=== PATIENT | male | born 1945 | race Caucasian/White ===

== ENCOUNTER 2018-02-05 14:45 | Inpatient (IN) | payer MEDICARE, BC ==
[~2018-02-05] VITALS: Ht 182.9 cm; Wt 75.0 kg
[~2018-02-05 14:45] MED LIST: AMIO200T57 PO; ATOR20TA PO; CARV3.12 PO; DULO-31 PO; FURO-150 PO; PANT40TA4 PO; SACU1TAB PO; SITA1TAB6 PO; WARF3TAB PO
[2018-02-05 16:56] LABS: BASOPHILS % (AUTO) 0.2 % (0-1); EOSINOPHILS # (AUTO) 0.3 X10'3 (0-0.9); EOSINOPHILS % (AUTO) 2.4 % (0-6); HEMOGLOBIN 8.7 g/dl (14.0-17.9); LYMPHOCYTES # (AUTO) 0.3 X10'3 (1.1-4.8); LYMPHOCYTES % (AUTO) 2.5 % (21-51); MEAN CORPUSCULAR HEMOGLOBIN 26.5 PG (27.0-31.0); MEAN CORPUSCULAR HGB CONC 32.1 % (33.0-36.5); MEAN CORPUSCULAR VOLUME 82.5 FL (78-98); MEAN PLATELET VOLUME 7.8 FL (7.4-10.4); MONOCYTES # (AUTO) 0.5 X10'3 (0-0.9); MONOCYTES % (AUTO) 4.1 % (2-12); NEUTROPHILS # (AUTO) 11.3 X10'3 (1.8-7.7); NEUTROPHILS % (AUTO) 90.8 % (42-75); PLATELET COUNT 353 X10'3 (140-440); RED BLOOD COUNT 3.27 X10'6 (4.70-6.10); RED CELL DISTRIBUTION WIDTH 18.6 % (11.5-14.5); WHITE BLOOD COUNT 12.5 X10'3 (4.5-11.0)
[2018-02-05 17:09] LABS: INR 3.8 INR; PARTIAL THROMBOPLASTIN TIME 47 SECONDS (22-32); PROTHROMBIN TIME 37.7 SECONDS (9.0-12.0)
[2018-02-05 17:11] LABS: ALANINE AMINOTRANSFERASE 24 U/L (12-78); ALBUMIN 2.6 G/DL (3.4-5.0); ALBUMIN/GLOBULIN RATIO 0.7 (1.1-1.5); ALKALINE PHOSPHATASE 132 IU/L (46-116); ANION GAP 10 (8-16); ASPARTATE AMINO TRANSFERASE 24 U/L (10-37); BILIRUBIN,TOTAL 0.8 MG/DL (0.1-1.0); BLOOD UREA NITROGEN 24 MG/DL (7-18); BUN/CREATININE RATIO 13.3 (5.4-32.0); CALCIUM 8.6 MG/DL (8.5-10.1); CHLORIDE 102 MMOL/L (99-107); CREATININE 1.81 MG/DL (0.60-1.10); GLUCOSE 130 MG/DL (70-104); POTASSIUM 3.9 MMOL/L (3.5-5.1); SODIUM 142 MMOL/L (135-145); TOTAL CARBON DIOXIDE 30.2 MMOL/L (24-32); TOTAL PROTEIN 6.6 G/DL (6.4-8.2); eGFR 37 ML/MIN
[2018-02-05] MEDS ORDERED: LIDOcaine 2% 10ml TOPICAL JELLY (Urojet) MM ONE (17:35)
[2018-02-05 18:02] LABS: CLARITY,URINE CLEAR (Clear); COLOR,URINE YELLOW (Yellow); GLUCOSE, URINE NEGATIVE (Neg); KETONES,URINE NEGATIVE (Neg); LEUKOCYTE ESTERASE ,URINE NEGATIVE (Neg); NITRITES, URINE NEGATIVE (Neg); OCCULT BLOOD,URINE NEGATIVE (Neg); PROTEIN,URINE NEGATIVE (Neg); UA COLLECTION TYPE FOLEY CATH; UROBILINOGEN,URINE 0.2 E.U/dL (0.2-1.0)
[2018-02-05] MEDS ORDERED: mag hydrox/Alum hydrox/simeth 30ml oral suspension PO PRN (20:20)
[2018-02-05] MEDS ORDERED: potassium Cl 40MEQ/NS 500ml 500 ML IV PRN ×2 (20:20)
[2018-02-05] MEDS ORDERED: magnesium hydroxide 30ml (MOM) UD suspension PO PRN (20:20)
[2018-02-05] MEDS ORDERED: magnesium 2GM in 50ml NS 50 ML IV PRN (20:20)
[2018-02-05] MEDS ORDERED: potassium Cl 20 mEq SR tablet PO PRN (20:20)
[2018-02-05] MEDS ORDERED: acetaminophen 325mg tablet PO PRN (20:20)
[2018-02-05] MEDS ORDERED: magnesium 4gm in 100ml NS 100 ML IV PRN (20:20)
[2018-02-05] MEDS ORDERED: morphine 4 MG/ML inj SYRINge IV PRN ×2 (20:20)
[2018-02-05] MEDS: normal saline 1000ml 1,000 ML IV SCH (20:39)
[2018-02-05] MEDS ORDERED: metFORMIN 500mg tablet PO SCH (21:00)
[2018-02-05] MEDS ORDERED: temazepam 15mg capsule PO PRN (21:00)
[2018-02-05] MEDS ORDERED: phytonadione inj. 5 MG in normal saline 100ml IV soln 99.5 ML IV ONE (21:15)
[2018-02-05] MEDS: CefTRIAXone 2gm/NS 100ml IVPB 100 ML IV SCH (21:38)
[2018-02-05 22:00] VITALS: BP 130/54
[2018-02-05] MEDS ORDERED: phytonadione 10 MG/1 ML amp IV ONE (22:55)
[2018-02-05] MEDS ORDERED: normal saline 100ml IV soln 100 ML IV ONE (22:55)
[2018-02-05] MEDS ORDERED: phytonadione 10 MG/1 ML amp ONE (23:12)
[2018-02-06 05:00] VITALS: BP 110/59
[2018-02-06 05:24] LABS: BASOPHILS % (AUTO) 0.1 % (0-1); EOSINOPHILS # (AUTO) 0.3 X10'3 (0-0.9); EOSINOPHILS % (AUTO) 2.8 % (0-6); HEMOGLOBIN 7.9 g/dl (14.0-17.9); LYMPHOCYTES # (AUTO) 0.6 X10'3 (1.1-4.8); LYMPHOCYTES % (AUTO) 6.4 % (21-51); MEAN CORPUSCULAR HEMOGLOBIN 26.8 PG (27.0-31.0); MEAN CORPUSCULAR HGB CONC 33.1 % (33.0-36.5); MEAN CORPUSCULAR VOLUME 80.9 FL (78-98); MEAN PLATELET VOLUME 8.7 FL (7.4-10.4); MONOCYTES # (AUTO) 0.6 X10'3 (0-0.9); MONOCYTES % (AUTO) 6.8 % (2-12); NEUTROPHILS # (AUTO) 7.8 X10'3 (1.8-7.7); NEUTROPHILS % (AUTO) 83.9 % (42-75); PLATELET COUNT 311 X10'3 (140-440); RED BLOOD COUNT 2.96 X10'6 (4.70-6.10); RED CELL DISTRIBUTION WIDTH 18.6 % (11.5-14.5); WHITE BLOOD COUNT 9.3 X10'3 (4.5-11.0)
[2018-02-06 05:34] LABS: INR 2.4 INR; PROTHROMBIN TIME 24.1 SECONDS (9.0-12.0)
[2018-02-06 05:43] LABS: ALANINE AMINOTRANSFERASE 20 U/L (12-78); ALBUMIN 2.3 G/DL (3.4-5.0); ALBUMIN/GLOBULIN RATIO 0.6 (1.1-1.5); ALKALINE PHOSPHATASE 116 IU/L (46-116); ANION GAP 10 (8-16); ASPARTATE AMINO TRANSFERASE 20 U/L (10-37); BILIRUBIN,TOTAL 0.6 MG/DL (0.1-1.0); BLOOD UREA NITROGEN 24 MG/DL (7-18); BUN/CREATININE RATIO 13.2 (5.4-32.0); CALCIUM 8.3 MG/DL (8.5-10.1); CHLORIDE 104 MMOL/L (99-107); CHOL/HDL RATIO 3.3 (0.00-4.99); CHOLESTEROL 90 MG/DL (0-200); CREATININE 1.82 MG/DL (0.60-1.10); GLUCOSE 96 MG/DL (70-104); HDL CHOLESTEROL 27 MG/DL (35-60); LDL CHOLESTEROL 49 MG/DL (50-100); MAGNESIUM 1.3 MG/DL (1.5-2.4); POTASSIUM 3.4 MMOL/L (3.5-5.1); SODIUM 144 MMOL/L (135-145); TOTAL CARBON DIOXIDE 29.7 MMOL/L (24-32); TOTAL PROTEIN 6.1 G/DL (6.4-8.2); TRIGLYCERIDES 57 MG/DL (20-135); eGFR 37 ML/MIN
[2018-02-06] MEDS ORDERED: furosemide 20MG tablet PO SCH (08:00)
[2018-02-06] MEDS: magnesium Cl slow-release 64mg tablet PO PRN ×2 (08:26→12:54)
[2018-02-06] MEDS: sacubitril/valsartan 24mg-26mg tablet PO SCH ×2 (08:26→20:10)
[2018-02-06] MEDS: carVEDilol 3.125mg tablet PO SCH (08:26)
[2018-02-06] MEDS: duloxetine 30mg CAPSULE.DR PO SCH (08:26)
[2018-02-06] MEDS: potassium Cl 20 mEq SR tablet PO PRN ×3 (08:26→18:36)
[2018-02-06] MEDS: amiodarone 200mg tablet PO SCH (08:26)
[2018-02-06] MEDS: ondansetron/PF 4mg/2ml inj IV PRN ×2 (08:26→18:36)
[2018-02-06] MEDS: pantoprazole 40mg Tablet.DR PO SCH (08:26)
[2018-02-06 08:31] VITALS: BP 131/67
[2018-02-06] MEDS: K and/or MAG REPLACEMENT MC SCH (08:44)
[2018-02-06] MEDS ORDERED: acetaminophen 325mg tablet PO ONE (09:25)
[2018-02-06] MEDS ORDERED: dextrose ORAL solution 15 GM/59 ML bottle PO PRN ×2 (09:25)
[2018-02-06] MEDS ORDERED: glucagon, human recombinant 1mg kit SUBCUT PRN (09:25)
[2018-02-06] MEDS ORDERED: dextrose 50%-water 50ml dispensing syringe IV PRN ×2 (09:25)
[2018-02-06] MEDS ORDERED: MESSAGE TO PHARMACY PO ONE (09:25)
[2018-02-06 10:20] VITALS: BP 117/58
[2018-02-06] MEDS: HYDROcodone/acetaminophen 5mg/325mg tablet PO PRN (12:28)
[2018-02-06] MEDS: normal saline 1000ml 1,000 ML IV SCH (12:29)
[2018-02-06 12:45] LABS: BASOPHILS % (AUTO) 0.2 % (0-1); EOSINOPHILS # (AUTO) 0.2 X10'3 (0-0.9); EOSINOPHILS % (AUTO) 2.3 % (0-6); HEMATOCRIT 25.1 % (42.0-52.0); HEMOGLOBIN 8.1 g/dl (14.0-17.9); LYMPHOCYTES # (AUTO) 0.4 X10'3 (1.1-4.8); MEAN CORPUSCULAR HEMOGLOBIN 26.5 PG (27.0-31.0); MEAN CORPUSCULAR HGB CONC 32.5 % (33.0-36.5); MEAN CORPUSCULAR VOLUME 81.5 FL (78-98); MEAN PLATELET VOLUME 8.4 FL (7.4-10.4); MONOCYTES # (AUTO) 0.6 X10'3 (0-0.9); MONOCYTES % (AUTO) 5.4 % (2-12); NEUTROPHILS # (AUTO) 9.5 X10'3 (1.8-7.7); NEUTROPHILS % (AUTO) 88.1 % (42-75); PLATELET COUNT 353 X10'3 (140-440); RED BLOOD COUNT 3.07 X10'6 (4.70-6.10); RED CELL DISTRIBUTION WIDTH 18.7 % (11.5-14.5); WHITE BLOOD COUNT 10.8 X10'3 (4.5-11.0)
[2018-02-06 18:00] VITALS: BP 102/43
[2018-02-06 18:03] LABS: BASOPHILS # (AUTO) 0.1 X10'3 (0-0.2); BASOPHILS % (AUTO) 0.6 % (0-1); EOSINOPHILS # (AUTO) 0.3 X10'3 (0-0.9); EOSINOPHILS % (AUTO) 2.8 % (0-6); HEMATOCRIT 25.7 % (42.0-52.0); HEMOGLOBIN 8.2 g/dl (14.0-17.9); LYMPHOCYTES # (AUTO) 0.5 X10'3 (1.1-4.8); LYMPHOCYTES % (AUTO) 5.1 % (21-51); MEAN CORPUSCULAR HEMOGLOBIN 26.3 PG (27.0-31.0); MEAN CORPUSCULAR HGB CONC 32.1 % (33.0-36.5); MEAN PLATELET VOLUME 7.9 FL (7.4-10.4); MONOCYTES # (AUTO) 0.8 X10'3 (0-0.9); MONOCYTES % (AUTO) 7.6 % (2-12); NEUTROPHILS # (AUTO) 8.8 X10'3 (1.8-7.7); NEUTROPHILS % (AUTO) 83.9 % (42-75); PLATELET COUNT 339 X10'3 (140-440); RED BLOOD COUNT 3.13 X10'6 (4.70-6.10); RED CELL DISTRIBUTION WIDTH 18.8 % (11.5-14.5); WHITE BLOOD COUNT 10.5 X10'3 (4.5-11.0)
[2018-02-06] MEDS ORDERED: phytonadione 10 MG/1 ML amp PO ONE (18:10)
[2018-02-06] MEDS: NUT.TX.GLUC.INTOLER,LAC-FR,REG (BOOST GLUCOSE CONTROL) 237 ML PO SCH (18:26)
[2018-02-06] MEDS: HYDROcodone/acetaminophen 10/325mg tab PO PRN (18:36)
[2018-02-06] MEDS: furosemide 20 MG/2 ML vial IV SCH (20:10)
[2018-02-06] MEDS: lactobacillus rhamnosus 10,000 MMU CELLS/CAPSULE PO SCH (20:10)
[2018-02-06] MEDS: CefTRIAXone 2gm/NS 100ml IVPB 100 ML IV SCH (20:10)
[2018-02-06 20:19] VITALS: BP 112/59
[2018-02-06] MEDS: insulin glargine (Lantus) pen - multi-dose SQ SCH (21:00)
[2018-02-06 21:58] VITALS: BP 106/44
[2018-02-07] VITALS (18 sets, daily range): BP systolic 85–131; BP diastolic 33–69
[2018-02-07] MEDS: HYDROcodone/acetaminophen 10/325mg tab PO PRN ×3 (03:29→22:21)
[2018-02-07 05:50] LABS: BASOPHILS % (AUTO) 0.2 % (0-1); EOSINOPHILS # (AUTO) 0.4 X10'3 (0-0.9); HEMATOCRIT 24.7 % (42.0-52.0); LYMPHOCYTES # (AUTO) 0.5 X10'3 (1.1-4.8); LYMPHOCYTES % (AUTO) 4.1 % (21-51); MEAN CORPUSCULAR HEMOGLOBIN 26.7 PG (27.0-31.0); MEAN CORPUSCULAR HGB CONC 32.3 % (33.0-36.5); MEAN CORPUSCULAR VOLUME 82.5 FL (78-98); MEAN PLATELET VOLUME 8.2 FL (7.4-10.4); MONOCYTES % (AUTO) 7.9 % (2-12); NEUTROPHILS # (AUTO) 10.3 X10'3 (1.8-7.7); NEUTROPHILS % (AUTO) 84.8 % (42-75); PLATELET COUNT 363 X10'3 (140-440); RED BLOOD COUNT 2.99 X10'6 (4.70-6.10); RED CELL DISTRIBUTION WIDTH 18.2 % (11.5-14.5); WHITE BLOOD COUNT 12.1 X10'3 (4.5-11.0)
[2018-02-07 06:04] LABS: INR 1.2 INR; PROTHROMBIN TIME 12.8 SECONDS (9.0-12.0)
[2018-02-07 06:22] LABS: ALANINE AMINOTRANSFERASE 23 U/L (12-78); ALBUMIN 2.2 G/DL (3.4-5.0); ALBUMIN/GLOBULIN RATIO 0.6 (1.1-1.5); ALKALINE PHOSPHATASE 113 IU/L (46-116); ANION GAP 10 (8-16); ASPARTATE AMINO TRANSFERASE 20 U/L (10-37); BILIRUBIN,TOTAL 0.6 MG/DL (0.1-1.0); BLOOD UREA NITROGEN 34 MG/DL (7-18); BUN/CREATININE RATIO 15.9 (5.4-32.0); CALCIUM 8.2 MG/DL (8.5-10.1); CHLORIDE 104 MMOL/L (99-107); CREATININE 2.14 MG/DL (0.60-1.10); GLUCOSE 145 MG/DL (70-104); MAGNESIUM 1.5 MG/DL (1.5-2.4); POTASSIUM 4.7 MMOL/L (3.5-5.1); SODIUM 141 MMOL/L (135-145); TOTAL CARBON DIOXIDE 27.2 MMOL/L (24-32); TOTAL PROTEIN 5.8 G/DL (6.4-8.2); eGFR 30 ML/MIN
[2018-02-07] MEDS: K and/or MAG REPLACEMENT MC SCH (08:00)
[2018-02-07] MEDS: NUT.TX.GLUC.INTOLER,LAC-FR,REG (BOOST GLUCOSE CONTROL) 237 ML PO SCH ×3 (08:00→18:00)
[2018-02-07] MEDS: furosemide 20 MG/2 ML vial IV SCH (08:18)
[2018-02-07] MEDS: pantoprazole 40mg Tablet.DR PO SCH (08:18)
[2018-02-07] MEDS: carVEDilol 3.125mg tablet PO SCH (08:18)
[2018-02-07] MEDS: duloxetine 30mg CAPSULE.DR PO SCH (08:18)
[2018-02-07] MEDS: lactobacillus rhamnosus 10,000 MMU CELLS/CAPSULE PO SCH ×2 (08:18→22:21)
[2018-02-07] MEDS: amiodarone 200mg tablet PO SCH (08:18)
[2018-02-07] MEDS: sacubitril/valsartan 24mg-26mg tablet PO SCH ×2 (08:19→22:21)
[2018-02-07] MEDS: ringers solution, lacted 1,000 ML IV SCH ×2 (09:10→22:31)
[2018-02-07] MEDS ORDERED: ceFAZolin 1000mg inj ONE (11:20)
[2018-02-07] MEDS ORDERED: cefazolin 1gm/NS 100mL 100 ML IV ONE (12:00)
[2018-02-07] MEDS ORDERED: ondansetron/PF 4mg/2ml inj IV PRN (12:15)
[2018-02-07] MEDS ORDERED: meperidine/PF 50mg/ml syringe IV PRN (12:15)
[2018-02-07] MEDS ORDERED: morphine 4 MG/ML inj SYRINge IV PRN ×2 (12:15)
[2018-02-07] MEDS ORDERED: ringers solution, lacted 1,000 ML IV SCH (12:15)
[2018-02-07] MEDS ORDERED: proCHLORperazine 10 MG/2 ml inj IV PRN (12:15)
[2018-02-07] MEDS ORDERED: fentaNYL/PF 50MCG/1 ML 2ML syringe IV PRN ×2 (12:15)
[2018-02-07] MEDS ORDERED: midazolam 2 mg/2 ml injection ONE (12:23)
[2018-02-07] MEDS ORDERED: ePHEDrine 50MG/ML INJ. ONE ×2 (12:49→12:58)
[2018-02-07] MEDS ORDERED: propofol inj 20 ML IV ONE (12:49)
[2018-02-07] MEDS ORDERED: phenylephrine 10mg/ml inj IV ONE (13:16)
[2018-02-07 15:08] LABS: HEMOGLOBIN 7.5 g/dl (14.0-17.9); MEAN PLATELET VOLUME 8.3 FL (7.4-10.4); PLATELET COUNT 279 X10'3 (140-440)
[2018-02-07 15:10] LABS: BASOPHILS % (AUTO) 0.2 % (0-1); EOSINOPHILS # (AUTO) 0.1 X10'3 (0-0.9); EOSINOPHILS % (AUTO) 1.2 % (0-6); LYMPHOCYTES # (AUTO) 0.4 X10'3 (1.1-4.8); LYMPHOCYTES % (AUTO) 3.9 % (21-51); MEAN CORPUSCULAR HEMOGLOBIN 26.5 PG (27.0-31.0); MEAN CORPUSCULAR HGB CONC 32.6 % (33.0-36.5); MEAN CORPUSCULAR VOLUME 81.3 FL (78-98); MONOCYTES # (AUTO) 0.7 X10'3 (0-0.9); MONOCYTES % (AUTO) 6.6 % (2-12); NEUTROPHILS % (AUTO) 88.1 % (42-75); RED BLOOD COUNT 2.82 X10'6 (4.70-6.10); RED CELL DISTRIBUTION WIDTH 18.2 % (11.5-14.5); WHITE BLOOD COUNT 10.3 X10'3 (4.5-11.0)
[2018-02-07 18:16] LABS: BASOPHILS % (AUTO) 0.2 % (0-1); EOSINOPHILS # (AUTO) 0.3 X10'3 (0-0.9); EOSINOPHILS % (AUTO) 2.5 % (0-6); HEMATOCRIT 23.5 % (42.0-52.0); HEMOGLOBIN 7.7 g/dl (14.0-17.9); LYMPHOCYTES # (AUTO) 0.4 X10'3 (1.1-4.8); LYMPHOCYTES % (AUTO) 3.4 % (21-51); MEAN CORPUSCULAR HEMOGLOBIN 26.8 PG (27.0-31.0); MEAN CORPUSCULAR HGB CONC 32.9 % (33.0-36.5); MEAN CORPUSCULAR VOLUME 81.5 FL (78-98); MEAN PLATELET VOLUME 7.9 FL (7.4-10.4); MONOCYTES # (AUTO) 0.9 X10'3 (0-0.9); MONOCYTES % (AUTO) 7.8 % (2-12); NEUTROPHILS # (AUTO) 9.7 X10'3 (1.8-7.7); NEUTROPHILS % (AUTO) 86.1 % (42-75); PLATELET COUNT 305 X10'3 (140-440); RED BLOOD COUNT 2.88 X10'6 (4.70-6.10); RED CELL DISTRIBUTION WIDTH 18.3 % (11.5-14.5); WHITE BLOOD COUNT 11.3 X10'3 (4.5-11.0)
[2018-02-07] MEDS: insulin glargine (Lantus) pen - multi-dose SQ SCH (21:00)
[2018-02-07] MEDS: furosemide 20MG tablet PO SCH (22:20)
[2018-02-07] MEDS: CefTRIAXone 2gm/NS 100ml IVPB 100 ML IV SCH (22:22)
[2018-02-08 01:16] LABS: BASOPHILS # (AUTO) 0.1 X10'3 (0-0.2); EOSINOPHILS # (AUTO) 0.1 X10'3 (0-0.9); EOSINOPHILS % (AUTO) 0.5 % (0-6); HEMATOCRIT 24.4 % (42.0-52.0); HEMOGLOBIN 7.9 g/dl (14.0-17.9); LYMPHOCYTES # (AUTO) 0.4 X10'3 (1.1-4.8); LYMPHOCYTES % (AUTO) 3.3 % (21-51); MEAN CORPUSCULAR HEMOGLOBIN 26.6 PG (27.0-31.0); MEAN CORPUSCULAR HGB CONC 32.5 % (33.0-36.5); MEAN CORPUSCULAR VOLUME 81.9 FL (78-98); MEAN PLATELET VOLUME 8.9 FL (7.4-10.4); MONOCYTES # (AUTO) 0.8 X10'3 (0-0.9); MONOCYTES % (AUTO) 6.2 % (2-12); NEUTROPHILS # (AUTO) 10.9 X10'3 (1.8-7.7); PLATELET COUNT 343 X10'3 (140-440); RED BLOOD COUNT 2.98 X10'6 (4.70-6.10); RED CELL DISTRIBUTION WIDTH 17.5 % (11.5-14.5); WHITE BLOOD COUNT 12.3 X10'3 (4.5-11.0)
[2018-02-08 03:00] VITALS: BP 121/52
[2018-02-08] MEDS: HYDROcodone/acetaminophen 10/325mg tab PO PRN ×3 (05:02→20:49)
[2018-02-08 05:51] LABS: BASOPHILS % (AUTO) 0.3 % (0-1); EOSINOPHILS # (AUTO) 0.3 X10'3 (0-0.9); EOSINOPHILS % (AUTO) 2.6 % (0-6); HEMATOCRIT 23.7 % (42.0-52.0); HEMOGLOBIN 7.6 g/dl (14.0-17.9); LYMPHOCYTES # (AUTO) 0.4 X10'3 (1.1-4.8); LYMPHOCYTES % (AUTO) 3.7 % (21-51); MEAN CORPUSCULAR HEMOGLOBIN 26.6 PG (27.0-31.0); MEAN CORPUSCULAR HGB CONC 32.2 % (33.0-36.5); MEAN CORPUSCULAR VOLUME 82.7 FL (78-98); MONOCYTES # (AUTO) 0.9 X10'3 (0-0.9); MONOCYTES % (AUTO) 8.3 % (2-12); NEUTROPHILS # (AUTO) 8.9 X10'3 (1.8-7.7); NEUTROPHILS % (AUTO) 85.1 % (42-75); PLATELET COUNT 303 X10'3 (140-440); RED BLOOD COUNT 2.87 X10'6 (4.70-6.10); RED CELL DISTRIBUTION WIDTH 18.5 % (11.5-14.5); WHITE BLOOD COUNT 10.5 X10'3 (4.5-11.0)
[2018-02-08 06:00] VITALS: BP 116/53
[2018-02-08 06:04] LABS: INR 1.1 INR; PROTHROMBIN TIME 11.7 SECONDS (9.0-12.0)
[2018-02-08 06:12] LABS: ALANINE AMINOTRANSFERASE 20 U/L (12-78); ALBUMIN/GLOBULIN RATIO 0.5 (1.1-1.5); ALKALINE PHOSPHATASE 111 IU/L (46-116); ANION GAP 9 (8-16); ASPARTATE AMINO TRANSFERASE 22 U/L (10-37); BILIRUBIN,TOTAL 0.4 MG/DL (0.1-1.0); BLOOD UREA NITROGEN 37 MG/DL (7-18); BUN/CREATININE RATIO 19.5 (5.4-32.0); CALCIUM 8.3 MG/DL (8.5-10.1); CHLORIDE 103 MMOL/L (99-107); GLUCOSE 161 MG/DL (70-104); MAGNESIUM 1.5 MG/DL (1.5-2.4); POTASSIUM 4.3 MMOL/L (3.5-5.1); SODIUM 143 MMOL/L (135-145); TOTAL CARBON DIOXIDE 30.6 MMOL/L (24-32); TOTAL PROTEIN 5.7 G/DL (6.4-8.2); eGFR 35 ML/MIN
[2018-02-08] MEDS: pantoprazole 40mg Tablet.DR PO SCH (07:35)
[2018-02-08] MEDS: NUT.TX.GLUC.INTOLER,LAC-FR,REG (BOOST GLUCOSE CONTROL) 237 ML PO SCH ×3 (08:00→18:51)
[2018-02-08] MEDS: furosemide 20MG tablet PO SCH ×2 (08:00→20:48)
[2018-02-08] MEDS: K and/or MAG REPLACEMENT MC SCH (08:00)
[2018-02-08] MEDS: sacubitril/valsartan 24mg-26mg tablet PO SCH ×2 (08:00→20:00)
[2018-02-08] MEDS: lactobacillus rhamnosus 10,000 MMU CELLS/CAPSULE PO SCH ×2 (08:45→20:49)
[2018-02-08] MEDS: carVEDilol 3.125mg tablet PO SCH (08:46)
[2018-02-08] MEDS: duloxetine 30mg CAPSULE.DR PO SCH (08:46)
[2018-02-08 10:00] VITALS: BP 112/53
[2018-02-08 12:00] LABS: BASOPHILS % (AUTO) 0.2 % (0-1); EOSINOPHILS # (AUTO) 0.2 X10'3 (0-0.9); EOSINOPHILS % (AUTO) 1.9 % (0-6); HEMATOCRIT 24.6 % (42.0-52.0); HEMOGLOBIN 8.1 g/dl (14.0-17.9); LYMPHOCYTES # (AUTO) 0.3 X10'3 (1.1-4.8); MEAN PLATELET VOLUME 8.2 FL (7.4-10.4); MONOCYTES # (AUTO) 0.7 X10'3 (0-0.9); MONOCYTES % (AUTO) 6.1 % (2-12); NEUTROPHILS # (AUTO) 10.2 X10'3 (1.8-7.7); NEUTROPHILS % (AUTO) 88.8 % (42-75); PLATELET COUNT 353 X10'3 (140-440); RED CELL DISTRIBUTION WIDTH 18.4 % (11.5-14.5); WHITE BLOOD COUNT 11.5 X10'3 (4.5-11.0)
[2018-02-08] MEDS: insulin Lispro (HumaLOG) vial - multi-dose SQ SCH ×2 (14:02→18:50)
[2018-02-08] MEDS: amiodarone 200mg tablet PO SCH (17:42)
[2018-02-08 18:00] VITALS: BP 104/46
[2018-02-08 19:46] LABS: BASOPHILS % (AUTO) 0.1 % (0-1); EOSINOPHILS # (AUTO) 0.1 X10'3 (0-0.9); HEMATOCRIT 25.4 % (42.0-52.0); HEMOGLOBIN 8.3 g/dl (14.0-17.9); LYMPHOCYTES # (AUTO) 0.4 X10'3 (1.1-4.8); LYMPHOCYTES % (AUTO) 3.5 % (21-51); MEAN CORPUSCULAR HEMOGLOBIN 26.6 PG (27.0-31.0); MEAN CORPUSCULAR HGB CONC 32.6 % (33.0-36.5); MEAN CORPUSCULAR VOLUME 81.7 FL (78-98); MEAN PLATELET VOLUME 7.9 FL (7.4-10.4); MONOCYTES # (AUTO) 0.7 X10'3 (0-0.9); MONOCYTES % (AUTO) 6.2 % (2-12); NEUTROPHILS # (AUTO) 9.9 X10'3 (1.8-7.7); NEUTROPHILS % (AUTO) 89.2 % (42-75); PLATELET COUNT 342 X10'3 (140-440); RED BLOOD COUNT 3.11 X10'6 (4.70-6.10); RED CELL DISTRIBUTION WIDTH 18.4 % (11.5-14.5); WHITE BLOOD COUNT 11.1 X10'3 (4.5-11.0)
[2018-02-08] MEDS: CefTRIAXone 2gm/NS 100ml IVPB 100 ML IV SCH (20:48)
[2018-02-08] MEDS: insulin glargine (Lantus) pen - multi-dose SQ SCH (20:48)
[2018-02-08] MEDS ORDERED: warfarin 5mg tablet PO ONE (21:00)
[2018-02-08 22:00] VITALS: BP 97/42
[2018-02-09] MEDS: ringers solution, lacted 1,000 ML IV SCH ×2 (01:10→21:10)
[2018-02-09] MEDS: HYDROcodone/acetaminophen 10/325mg tab PO PRN ×2 (05:21→20:03)
[2018-02-09 06:00] VITALS: BP 99/44
[2018-02-09 06:21] LABS: BASOPHILS % (AUTO) 0.2 % (0-1); EOSINOPHILS # (AUTO) 0.4 X10'3 (0-0.9); EOSINOPHILS % (AUTO) 3.5 % (0-6); HEMOGLOBIN 7.2 g/dl (14.0-17.9); LYMPHOCYTES # (AUTO) 0.4 X10'3 (1.1-4.8); LYMPHOCYTES % (AUTO) 4.2 % (21-51); MEAN CORPUSCULAR HEMOGLOBIN 26.6 PG (27.0-31.0); MEAN CORPUSCULAR HGB CONC 32.9 % (33.0-36.5); MEAN CORPUSCULAR VOLUME 80.9 FL (78-98); MEAN PLATELET VOLUME 7.6 FL (7.4-10.4); MONOCYTES # (AUTO) 0.8 X10'3 (0-0.9); MONOCYTES % (AUTO) 7.7 % (2-12); NEUTROPHILS # (AUTO) 8.9 X10'3 (1.8-7.7); NEUTROPHILS % (AUTO) 84.4 % (42-75); PLATELET COUNT 270 X10'3 (140-440); RED BLOOD COUNT 2.72 X10'6 (4.70-6.10); RED CELL DISTRIBUTION WIDTH 18.6 % (11.5-14.5); WHITE BLOOD COUNT 10.5 X10'3 (4.5-11.0)
[2018-02-09 06:26] LABS: INR 1.3 INR; PROTHROMBIN TIME 13.4 SECONDS (9.0-12.0)
[2018-02-09 06:38] LABS: ALANINE AMINOTRANSFERASE 23 U/L (12-78); ALBUMIN 1.9 G/DL (3.4-5.0); ALBUMIN/GLOBULIN RATIO 0.5 (1.1-1.5); ALKALINE PHOSPHATASE 125 IU/L (46-116); ANION GAP 5 (8-16); ASPARTATE AMINO TRANSFERASE 27 U/L (10-37); BILIRUBIN,TOTAL 0.4 MG/DL (0.1-1.0); BLOOD UREA NITROGEN 32 MG/DL (7-18); BUN/CREATININE RATIO 20.1 (5.4-32.0); CALCIUM 8.5 MG/DL (8.5-10.1); CHLORIDE 105 MMOL/L (99-107); CREATININE 1.59 MG/DL (0.60-1.10); GLUCOSE 136 MG/DL (70-104); MAGNESIUM 1.7 MG/DL (1.5-2.4); POTASSIUM 4.9 MMOL/L (3.5-5.1); SODIUM 142 MMOL/L (135-145); TOTAL CARBON DIOXIDE 32.3 MMOL/L (24-32); TOTAL PROTEIN 5.5 G/DL (6.4-8.2); eGFR 43 ML/MIN
[2018-02-09] MEDS: carVEDilol 3.125mg tablet PO SCH (08:00)
[2018-02-09] MEDS: furosemide 20MG tablet PO SCH ×2 (08:00→20:00)
[2018-02-09] MEDS: lactobacillus rhamnosus 10,000 MMU CELLS/CAPSULE PO SCH ×2 (08:00→19:59)
[2018-02-09] MEDS: sacubitril/valsartan 24mg-26mg tablet PO SCH ×2 (08:00→20:04)
[2018-02-09] MEDS: K and/or MAG REPLACEMENT MC SCH (08:00)
[2018-02-09] MEDS: amiodarone 200mg tablet PO SCH (08:00)
[2018-02-09] MEDS: duloxetine 30mg CAPSULE.DR PO SCH (08:08)
[2018-02-09] MEDS: pantoprazole 40mg Tablet.DR PO SCH (08:08)
[2018-02-09] MEDS: NUT.TX.GLUC.INTOLER,LAC-FR,REG (BOOST GLUCOSE CONTROL) 237 ML PO SCH ×3 (08:11→18:00)
[2018-02-09] MEDS: insulin Lispro (HumaLOG) vial - multi-dose SQ SCH ×3 (09:02→20:25)
[2018-02-09 10:00] VITALS: BP 125/56
[2018-02-09 18:30] VITALS: BP 106/67
[2018-02-09] MEDS: CefTRIAXone 2gm/NS 100ml IVPB 100 ML IV SCH (20:10)
[2018-02-09] MEDS ORDERED: warfarin 2.5mg tablet PO ONE (21:00)
[2018-02-09] MEDS: insulin glargine (Lantus) pen - multi-dose SQ SCH (21:49)
[2018-02-09 22:30] VITALS: BP 97/47
[2018-02-10] VITALS (10 sets, daily range): BP systolic 98–121; BP diastolic 35–53
[2018-02-10 05:41] LABS: BASOPHILS % (AUTO) 0.3 % (0-1); EOSINOPHILS # (AUTO) 0.3 X10'3 (0-0.9); EOSINOPHILS % (AUTO) 2.7 % (0-6); HEMOGLOBIN 7.2 g/dl (14.0-17.9); LYMPHOCYTES # (AUTO) 0.5 X10'3 (1.1-4.8); LYMPHOCYTES % (AUTO) 3.6 % (21-51); MEAN CORPUSCULAR HEMOGLOBIN 26.9 PG (27.0-31.0); MEAN CORPUSCULAR HGB CONC 32.7 % (33.0-36.5); MEAN CORPUSCULAR VOLUME 82.1 FL (78-98); MEAN PLATELET VOLUME 7.9 FL (7.4-10.4); NEUTROPHILS # (AUTO) 10.8 X10'3 (1.8-7.7); NEUTROPHILS % (AUTO) 85.4 % (42-75); PLATELET COUNT 294 X10'3 (140-440); RED BLOOD COUNT 2.67 X10'6 (4.70-6.10); RED CELL DISTRIBUTION WIDTH 18.8 % (11.5-14.5); WHITE BLOOD COUNT 12.6 X10'3 (4.5-11.0)
[2018-02-10 05:46] LABS: INR 1.7 INR; PROTHROMBIN TIME 16.8 SECONDS (9.0-12.0)
[2018-02-10 06:00] LABS: ALANINE AMINOTRANSFERASE 30 U/L (12-78); ALBUMIN 1.9 G/DL (3.4-5.0); ALBUMIN/GLOBULIN RATIO 0.5 (1.1-1.5); ALKALINE PHOSPHATASE 144 IU/L (46-116); ANION GAP 4 (8-16); ASPARTATE AMINO TRANSFERASE 36 U/L (10-37); BILIRUBIN,TOTAL 0.5 MG/DL (0.1-1.0); BLOOD UREA NITROGEN 35 MG/DL (7-18); BUN/CREATININE RATIO 24.3 (5.4-32.0); CALCIUM 7.9 MG/DL (8.5-10.1); CHLORIDE 104 MMOL/L (99-107); CREATININE 1.44 MG/DL (0.60-1.10); GLUCOSE 86 MG/DL (70-104); MAGNESIUM 1.8 MG/DL (1.5-2.4); POTASSIUM 5.2 MMOL/L (3.5-5.1); SODIUM 141 MMOL/L (135-145); TOTAL CARBON DIOXIDE 32.6 MMOL/L (24-32); TOTAL PROTEIN 5.6 G/DL (6.4-8.2); eGFR 48 ML/MIN
[2018-02-10 06:13] LABS: HEMATOCRIT 21.9 % (42.0-52.0)
[2018-02-10] MEDS: HYDROcodone/acetaminophen 10/325mg tab PO PRN ×2 (07:36→17:53)
[2018-02-10] MEDS: pantoprazole 40mg Tablet.DR PO SCH (07:36)
[2018-02-10] MEDS: lactobacillus rhamnosus 10,000 MMU CELLS/CAPSULE PO SCH ×2 (07:37→20:41)
[2018-02-10] MEDS: K and/or MAG REPLACEMENT MC SCH (07:39)
[2018-02-10] MEDS: sacubitril/valsartan 24mg-26mg tablet PO SCH ×2 (08:00→20:41)
[2018-02-10] MEDS: amiodarone 200mg tablet PO SCH (08:00)
[2018-02-10] MEDS: carVEDilol 3.125mg tablet PO SCH (08:00)
[2018-02-10] MEDS: furosemide 20MG tablet PO SCH ×2 (08:00→21:03)
[2018-02-10] MEDS: NUT.TX.GLUC.INTOLER,LAC-FR,REG (BOOST GLUCOSE CONTROL) 237 ML PO SCH ×3 (08:00→18:00)
[2018-02-10] MEDS: insulin Lispro (HumaLOG) vial - multi-dose SQ SCH ×2 (09:09→14:29)
[2018-02-10] MEDS: duloxetine 30mg CAPSULE.DR PO SCH (09:15)
[2018-02-10] MEDS ORDERED: acetaminophen 325mg tablet PO PRN (09:55)
[2018-02-10] MEDS ORDERED: furosemide 20 MG/2 ML vial IV ONE (09:55)
[2018-02-10 16:02] LABS: BASOPHILS % (AUTO) 0.1 % (0-1); EOSINOPHILS # (AUTO) 0.2 X10'3 (0-0.9); EOSINOPHILS % (AUTO) 1.7 % (0-6); HEMATOCRIT 26.1 % (42.0-52.0); HEMOGLOBIN 8.6 g/dl (14.0-17.9); LYMPHOCYTES # (AUTO) 0.5 X10'3 (1.1-4.8); MEAN CORPUSCULAR HEMOGLOBIN 27.6 PG (27.0-31.0); MEAN CORPUSCULAR HGB CONC 33.1 % (33.0-36.5); MEAN CORPUSCULAR VOLUME 83.3 FL (78-98); MEAN PLATELET VOLUME 7.8 FL (7.4-10.4); MONOCYTES # (AUTO) 0.7 X10'3 (0-0.9); MONOCYTES % (AUTO) 6.1 % (2-12); NEUTROPHILS # (AUTO) 10.1 X10'3 (1.8-7.7); NEUTROPHILS % (AUTO) 88.1 % (42-75); PLATELET COUNT 319 X10'3 (140-440); RED BLOOD COUNT 3.14 X10'6 (4.70-6.10); RED CELL DISTRIBUTION WIDTH 17.6 % (11.5-14.5); WHITE BLOOD COUNT 11.4 X10'3 (4.5-11.0)
[2018-02-10 16:11] LABS: ALBUMIN 1.8 G/DL (3.4-5.0); ANION GAP 5 (8-16); BLOOD UREA NITROGEN 35 MG/DL (7-18); BUN/CREATININE RATIO 26.1 (5.4-32.0); CALCIUM 8.2 MG/DL (8.5-10.1); CHLORIDE 104 MMOL/L (99-107); CREATININE 1.34 MG/DL (0.60-1.10); GLUCOSE 90 MG/DL (70-104); POTASSIUM 4.9 MMOL/L (3.5-5.1); SODIUM 141 MMOL/L (135-145); TOTAL CARBON DIOXIDE 32.4 MMOL/L (24-32); eGFR 52 ML/MIN
[2018-02-10] MEDS ORDERED: bisacodyl 10mg suppository rectal RC STA (16:16)
[2018-02-10] MEDS ORDERED: magnesium citrate 296ml oral solution PO ONE (16:20)
[2018-02-10] MEDS: insulin glargine (Lantus) pen - multi-dose SQ SCH (20:40)
[2018-02-10] MEDS: CefTRIAXone 2gm/NS 100ml IVPB 100 ML IV SCH (20:41)
[2018-02-11] MEDS: HYDROcodone/acetaminophen 5mg/325mg tablet PO PRN ×2 (05:28→09:13)
[2018-02-11 06:00] VITALS: BP 128/62
[2018-02-11 06:48] LABS: BASOPHILS % (AUTO) 0 % (0-1); EOSINOPHILS # (AUTO) 0.3 X10'3 (0-0.9); EOSINOPHILS % (AUTO) 1.9 % (0-6); HEMATOCRIT 27.7 % (42.0-52.0); HEMOGLOBIN 9.2 g/dl (14.0-17.9); LYMPHOCYTES # (AUTO) 0.3 X10'3 (1.1-4.8); LYMPHOCYTES % (AUTO) 1.9 % (21-51); MEAN CORPUSCULAR HEMOGLOBIN 27.3 PG (27.0-31.0); MEAN CORPUSCULAR HGB CONC 33.3 % (33.0-36.5); MONOCYTES # (AUTO) 0.7 X10'3 (0-0.9); MONOCYTES % (AUTO) 4.6 % (2-12); NEUTROPHILS # (AUTO) 14.2 X10'3 (1.8-7.7); NEUTROPHILS % (AUTO) 91.6 % (42-75); PLATELET COUNT 327 X10'3 (140-440); RED BLOOD COUNT 3.38 X10'6 (4.70-6.10); RED CELL DISTRIBUTION WIDTH 17.9 % (11.5-14.5); WHITE BLOOD COUNT 15.5 X10'3 (4.5-11.0)
[2018-02-11 07:08] LABS: ALBUMIN 1.8 G/DL (3.4-5.0); ANION GAP 0 (8-16); BLOOD UREA NITROGEN 32 MG/DL (7-18); BUN/CREATININE RATIO 26.7 (5.4-32.0); CALCIUM 8.2 MG/DL (8.5-10.1); CHLORIDE 103 MMOL/L (99-107); GLUCOSE 121 MG/DL (70-104); POTASSIUM 5.5 MMOL/L (3.5-5.1); SODIUM 136 MMOL/L (135-145); eGFR 59 ML/MIN
[2018-02-11 07:13] LABS: INR 1.9 INR; PROTHROMBIN TIME 18.4 SECONDS (9.0-12.0)
[2018-02-11] MEDS: sacubitril/valsartan 24mg-26mg tablet PO SCH ×2 (08:00→09:14)
[2018-02-11] MEDS: NUT.TX.GLUC.INTOLER,LAC-FR,REG (BOOST GLUCOSE CONTROL) 237 ML PO SCH ×2 (08:00→13:00)
[2018-02-11] MEDS: K and/or MAG REPLACEMENT MC SCH (08:00)
[2018-02-11] MEDS: furosemide 20MG tablet PO SCH (08:00)
[2018-02-11] MEDS: amiodarone 200mg tablet PO SCH (09:13)
[2018-02-11] MEDS: insulin Lispro (HumaLOG) vial - multi-dose SQ SCH (09:13)
[2018-02-11] MEDS: lactobacillus rhamnosus 10,000 MMU CELLS/CAPSULE PO SCH (09:14)
[2018-02-11] MEDS: carVEDilol 3.125mg tablet PO SCH (09:14)
[2018-02-11] MEDS: pantoprazole 40mg Tablet.DR PO SCH (09:14)
[2018-02-11] MEDS: duloxetine 30mg CAPSULE.DR PO SCH (09:14)
[2018-02-11 11:45] VITALS: BP 98/42
[2018-02-11] MEDS: HYDROcodone/acetaminophen 10/325mg tab PO PRN (14:10)
[2018-02-11 14:40] VITALS: BP 115/46
[2018-02-11] MEDS ORDERED: Protein Smoothie (high protein) 240ml (8oz) cup PO SCH (17:30)
[2018-02-11] MEDS ORDERED: warfarin 2.5mg tablet PO ONE (21:00)
== END 2018-02-11 16:22 | DRG 480 ==
LOC: ER 14:46 → ED HOLD 20:16 → ORTHO 4S 21:28
PROVIDERS: ADMIT Internal Medicine; ATTEND Internal Medicine
PROC: 0QS706Z Reposition Left Upper Femur with Intramedullary Internal Fixation Device, Open Approach (ICD-10-PCS; principal; 2018-02-07 12:15)
PROC: 30233N1 Transfusion of Nonautologous Red Blood Cells into Peripheral Vein, Percutaneous Approach (ICD-10-PCS; 2018-02-10)
DX: S72.142A Displaced intertrochanteric fracture of left femur, initial encounter for closed fracture (principal); I50.21 Acute systolic (congestive) heart failure; N17.9 Acute kidney failure, unspecified; D68.59 Other primary thrombophilia; E11.22 Type 2 diabetes mellitus with diabetic chronic kidney disease; I13.0 Hypertensive heart and chronic kidney disease with heart failure and stage 1 through stage 4 chronic kidney disease, or unspecified chronic kidney disease; I48.91 Unspecified atrial fibrillation; W18.39XA Other fall on same level, initial encounter; I25.10 Atherosclerotic heart disease of native coronary artery without angina pectoris; D64.9 Anemia, unspecified; K21.9 Gastro-esophageal reflux disease without esophagitis; N18.9 Chronic kidney disease, unspecified; R29.6 Repeated falls; Z95.1 Presence of aortocoronary bypass graft; Z79.01 Long term (current) use of anticoagulants; Z79.899 Other long term (current) drug therapy; Y93.89 Activity, other specified; Y92.89 Other specified places as the place of occurrence of the external cause; Y99.8 Other external cause status
CPT/HCPCS: 36415; 71045; 73502; 76001; 76604; 80048; 80053; 80061; 81003; 82948; 83036; 83605; 83735; 83880; 84439; 84443; 84484; 85025; 85610; 85730; 86885; 86900; 86901; 86920; 87040; 87070; 93005; 93306; 97110; 97116; 97162; 97530; 99285; A4315; A6212; A6213; A6257; A6449; A7000; J0690; J0696; J1815; J1940; J2250; J2370; J2405; J2704; J3010; J3370; J3430; J7030; J7120; P9016

== ENCOUNTER 2018-03-08 10:54 | Outpatient (CLI) | payer MEDICARE, BC ==
[~2018-03-08 10:54] MED LIST changes: -ATOR20TA PO
[2018-03-08] MEDS ORDERED: gadopentetate dimeglumine 7.5 MMOL/15 ML syringe ONE (15:33)
== END 2018-03-08 23:59 | disposition home or self-care (01) ==
LOC: RAD 10:54
PROVIDERS: ATTEND Internal Medicine
DX: M25.871 Other specified joint disorders, right ankle and foot (principal); R60.0 Localized edema; L97.513 Non-pressure chronic ulcer of other part of right foot with necrosis of muscle
CPT/HCPCS: 73220; A9579

== ENCOUNTER 2018-03-18 09:50 | Inpatient (IN) | payer MEDICARE, BC ==
[~2018-03-18] VITALS: Ht 182.9 cm; Wt 63.6 kg
[~2018-03-18 09:50] MED LIST changes: -CARV3.12 PO; -PANT40TA4 PO; -WARF3TAB PO
[2018-03-18] MEDS ORDERED: NA P133E4 RC (14:20)
[2018-03-18] MEDS ORDERED: ACET-2119 PO (14:20)
[2018-03-18] MEDS ORDERED: LIDOCAINE GEL 2% TOP (14:20)
[2018-03-18] MEDS ORDERED: BISA10SU60 RC (14:20)
[2018-03-18] MEDS ORDERED: MAGN400O6 PO (14:20)
[2018-03-18] MEDS ORDERED: COLL30OI TP (14:20)
[2018-03-18] MEDS ORDERED: HYDR-565 PO (14:20)
[2018-03-18] MEDS ORDERED: VANC1PLA9 IV (14:20)
[2018-03-18] MEDS ORDERED: OMEP20TA5 PO (14:20)
[2018-03-18] MEDS ORDERED: ONDA4TAB6 PO (14:20)
[2018-03-18] MEDS ORDERED: ASCO500C15 PO (14:34)
[2018-03-18] MEDS ORDERED: DEXT15DR7 EACHEYE (14:34)
[2018-03-18] MEDS ORDERED: FLO0.4C PO (14:34)
[2018-03-18] MEDS ORDERED: MULT-38 PO (14:34)
[2018-03-18] MEDS ORDERED: CARV3.12 PO (15:28)
[2018-03-21] VITALS (24 sets, daily range): BP systolic 78–125; BP diastolic 36–62
[2018-03-21] MEDS ORDERED: ringers solution, lacted 1,000 ML IV SCH ×2 (05:00→14:12)
[2018-03-21] MEDS ORDERED: famotidine 20mg tablet PO ONE (05:30)
[2018-03-21] MEDS ORDERED: acetaminophen 325mg tablet PO ONE (08:36)
[2018-03-21] MEDS ORDERED: tranexamic acid inj. 1,000 MG in normal saline 100ml IV soln 90 ML IV ONE (08:36)
[2018-03-21] MEDS ORDERED: oxyCODONE SR 10mg (sust. release) tab PO ONE (08:36)
[2018-03-21] MEDS ORDERED: vancomycin inj 1,500 MG in normal saline 300ml IV soln IV ONE (08:36)
[2018-03-21] MEDS ORDERED: metoclopramide 5 mg/ml inj IV ONE (08:36)
[2018-03-21] MEDS ORDERED: celeCOXIB 100mg capsule PO ONE (08:36)
[2018-03-21] MEDS ORDERED: gabapentin 300mg capsule PO ONE (08:36)
[2018-03-21 11:23] LABS: BASOPHILS % (AUTO) 0.2 % (0-1); EOSINOPHILS # (AUTO) 0.2 X10'3 (0-0.9); EOSINOPHILS % (AUTO) 2.1 % (0-6); LYMPHOCYTES # (AUTO) 0.5 X10'3 (1.1-4.8); LYMPHOCYTES % (AUTO) 5.2 % (21-51); MEAN CORPUSCULAR HEMOGLOBIN 26.6 PG (27.0-31.0); MEAN CORPUSCULAR HGB CONC 32.7 % (33.0-36.5); MEAN CORPUSCULAR VOLUME 81.3 FL (78-98); MEAN PLATELET VOLUME 7.2 FL (7.4-10.4); MONOCYTES # (AUTO) 0.7 X10'3 (0-0.9); MONOCYTES % (AUTO) 6.3 % (2-12); NEUTROPHILS # (AUTO) 8.9 X10'3 (1.8-7.7); NEUTROPHILS % (AUTO) 86.2 % (42-75); PRE OP HEMATOCRIT 28.8 % (42.0-52.0); PRE OP PLATELET COUNT 396 X10'3 (140-440); RED BLOOD COUNT 3.55 X10'6 (4.70-6.10); RED CELL DISTRIBUTION WIDTH 19.3 % (11.5-14.5)
[2018-03-21 11:28] LABS: PRE OP HEMOGLOBIN 9.4 g/dL (14.0-17.9)
[2018-03-21 11:33] LABS: PRE OP INR 1.2 INR; PRE OP PROTIME 12.7 SECONDS (9.0-12.0)
[2018-03-21 11:37] LABS: ALBUMIN 2.5 G/DL (3.4-5.0); ALBUMIN/GLOBULIN RATIO 0.6 (1.1-1.5); ALKALINE PHOSPHATASE 180 IU/L (46-116); BLOOD UREA NITROGEN 30 MG/DL (7-18); BUN/CREATININE RATIO 20.4 (5.4-32.0); CALCIUM 9.1 MG/DL (8.5-10.1); CHLORIDE 101 MMOL/L (99-107); CREATININE 1.47 MG/DL (0.60-1.10); PRE OP ALT 34 U/L (30-65); PRE OP ANION GAP 4 (8-16); PRE OP AST 38 U/L (10-37); PRE OP BILIRUB, TOTAL 0.6 MG/DL (0.0-1.0); PRE OP GLUCOSE 105 MG/DL (70-104); PRE OP POTASSIUM 5.1 MMOL/L (3.4-5.1); PRE OP SODIUM 139 MMOL/L (135-145); TOTAL CARBON DIOXIDE 33.7 MMOL/L (24-32); TOTAL PROTEIN 6.5 G/DL (6.4-8.2); eGFR 47 ML/MIN
[2018-03-21] MEDS ORDERED: LIDOcaine 1% (10mg/ml) 2ml vial ONE (11:38)
[2018-03-21 11:59] LABS: HEMOGLOBIN A1C 6.2 % (4.5-6.2)
[2018-03-21] MEDS ORDERED: epiNEPHrine 1 mg/ml inj ONE (12:12)
[2018-03-21] MEDS ORDERED: ketorolac trometh. 30mg/ml inj. ONE (12:12)
[2018-03-21] MEDS ORDERED: vancomycin 1,000mg inj ONE (12:13)
[2018-03-21] MEDS ORDERED: cloNIDine hcl/PF 100mcg/ml inj ONE (12:13)
[2018-03-21] MEDS ORDERED: ROPIVAcaine 0.5% (5mg/ml) 30ml vial ONE (12:13)
[2018-03-21] MEDS ORDERED: ceFAZolin inj. 2,000 MG in dextrose 5%-water 50 ML IV ONE (12:15)
[2018-03-21] MEDS ORDERED: ceFAZolin inj. 2,000 MG in dextrose 5%-water 100 ML IV ONE (12:50)
[2018-03-21] MEDS ORDERED: dexamethasone sod phosphate 10mg/ml inj ONE (13:00)
[2018-03-21] MEDS ORDERED: tetracaine 1% (10mg/ml) pres. free inj. ONE (13:01)
[2018-03-21] MEDS ORDERED: fentaNYL/PF 50MCG/1 ML 2ML syringe ONE (13:04)
[2018-03-21] MEDS ORDERED: morphine /PF 1mg/ml 10ml inj. ONE (13:04)
[2018-03-21] MEDS ORDERED: MIDAZolam 1mg/ml 10ml vial ONE (13:04)
[2018-03-21] MEDS ORDERED: acetaminophen 325mg tablet PO PRN (13:15)
[2018-03-21] MEDS ORDERED: oxyCODONE/APAP 5-325mg tablet PO PRN (13:15)
[2018-03-21] MEDS ORDERED: dextrose ORAL solution 15 GM/59 ML bottle PO PRN ×2 (13:15)
[2018-03-21] MEDS ORDERED: diphenhydrAMINE 25mg capsule PO PRN ×2 (13:15)
[2018-03-21] MEDS ORDERED: ondansetron/PF 4mg/2ml inj IV PRN ×3 (13:15→15:45)
[2018-03-21] MEDS ORDERED: magnesium hydroxide 30ml (MOM) UD suspension PO PRN (13:15)
[2018-03-21] MEDS ORDERED: bisacodyl 10mg suppository rectal RC PRN (13:15)
[2018-03-21] MEDS ORDERED: MESSAGE TO PHARMACY PO ONE (13:15)
[2018-03-21] MEDS ORDERED: morphine 4 MG/ML inj SYRINge IV PRN ×3 (13:15→14:15)
[2018-03-21] MEDS ORDERED: dextrose 50%-water 50ml dispensing syringe IV PRN ×2 (13:15)
[2018-03-21] MEDS ORDERED: insulin Lispro (HumaLOG) vial - multi-dose SQ SCH (13:15)
[2018-03-21] MEDS ORDERED: glucagon, human recombinant 1mg kit SUBCUT PRN (13:15)
[2018-03-21] MEDS ORDERED: albumin (Human) 5% 250ml 250 ML IV ONE ×2 (13:19→13:41)
[2018-03-21] MEDS ORDERED: propofol inj 20 ML IV ONE ×2 (13:47)
[2018-03-21] MEDS ORDERED: hydrALAZINE 20mg/ml inj. IV PRN (14:15)
[2018-03-21] MEDS ORDERED: fentaNYL/PF 50MCG/1 ML 2ML syringe IV PRN ×2 (14:15)
[2018-03-21] MEDS ORDERED: diphenhydrAMINE 50 mg/ml inj IV PRN (15:45)
[2018-03-21] MEDS ORDERED: ceFAZolin 1GM/D5W- ADD-VANTAGE 50 ML IV SCH (16:00)
[2018-03-21] MEDS: tamsulosin 0.4mg capsule PO SCH (17:00)
[2018-03-21 17:19] LABS: HEMOGLOBIN A1C 5.8 % (4.5-6.2)
[2018-03-21 17:27] LABS: ALANINE AMINOTRANSFERASE 26 U/L (12-78); ALBUMIN 2.2 G/DL (3.4-5.0); ALBUMIN/GLOBULIN RATIO 0.8 (1.1-1.5); ALKALINE PHOSPHATASE 124 IU/L (46-116); ASPARTATE AMINO TRANSFERASE 28 U/L (10-37); BILIRUBIN,DIRECT 0.2 MG/DL (0-0.3); BILIRUBIN,TOTAL 0.5 MG/DL (0.1-1.0); TOTAL PROTEIN 4.9 G/DL (6.4-8.2)
[2018-03-21 18:16] LABS: BASOPHILS % (AUTO) 0.2 % (0-1); EOSINOPHILS # (AUTO) 0.2 X10'3 (0-0.9); LYMPHOCYTES # (AUTO) 0.5 X10'3 (1.1-4.8); LYMPHOCYTES % (AUTO) 5.1 % (21-51); MEAN CORPUSCULAR HEMOGLOBIN 26.3 PG (27.0-31.0); MEAN CORPUSCULAR HGB CONC 32.6 % (33.0-36.5); MEAN CORPUSCULAR VOLUME 80.6 FL (78-98); MEAN PLATELET VOLUME 7.6 FL (7.4-10.4); MONOCYTES # (AUTO) 0.5 X10'3 (0-0.9); MONOCYTES % (AUTO) 5.5 % (2-12); NEUTROPHILS # (AUTO) 8.5 X10'3 (1.8-7.7); NEUTROPHILS % (AUTO) 87.2 % (42-75); PLATELET COUNT 261 X10'3 (140-440); RED BLOOD COUNT 2.39 X10'6 (4.70-6.10); RED CELL DISTRIBUTION WIDTH 19.1 % (11.5-14.5); WHITE BLOOD COUNT 9.8 X10'3 (4.5-11.0)
[2018-03-21 18:22] LABS: HEMATOCRIT 19.3 % (42.0-52.0); HEMOGLOBIN 6.3 g/dl (14.0-17.9)
[2018-03-21] MEDS: potassium cl 20mEq in 1/2 NS 1,000 ML IV SCH (18:59)
[2018-03-21] MEDS ORDERED: [UNRECOGNIZED DRUG - OTHER] IV SCH (20:00)
[2018-03-21] MEDS ORDERED: VANCOMYCIN IV SCH (20:00)
[2018-03-21] MEDS: ascorbic acid 500mg tablet PO SCH (20:00)
[2018-03-21] MEDS ORDERED: SOD CHLORIDE IV SCH (20:00)
[2018-03-21] MEDS: sacubitril/valsartan 24mg-26mg tablet PO SCH (20:00)
[2018-03-21] MEDS: carVEDilol 3.125mg tablet PO SCH (20:00)
[2018-03-21] MEDS: sennosides 8.6mg tablet PO SCH (20:28)
[2018-03-21] MEDS: gabapentin 300mg capsule PO SCH (20:28)
[2018-03-22] MEDS: potassium cl 20mEq in 1/2 NS 1,000 ML IV SCH ×2 (00:01→09:29)
[2018-03-22] MEDS: vancomycin/NS 1 GM ADD-VANTAGE 250 ML IV SCH ×2 (01:09→20:44)
[2018-03-22 02:00] VITALS: BP 101/35
[2018-03-22 05:00] VITALS: BP 178/60
[2018-03-22 05:58] LABS: BASOPHILS # (AUTO) 0.1 X10'3 (0-0.2); BASOPHILS % (AUTO) 0.6 % (0-1); EOSINOPHILS # (AUTO) 0.2 X10'3 (0-0.9); EOSINOPHILS % (AUTO) 2.7 % (0-6); HEMATOCRIT 24.7 % (42.0-52.0); HEMOGLOBIN 8.1 g/dl (14.0-17.9); LYMPHOCYTES # (AUTO) 0.4 X10'3 (1.1-4.8); LYMPHOCYTES % (AUTO) 4.4 % (21-51); MEAN CORPUSCULAR VOLUME 81.9 FL (78-98); MEAN PLATELET VOLUME 8.2 FL (7.4-10.4); MONOCYTES # (AUTO) 0.9 X10'3 (0-0.9); MONOCYTES % (AUTO) 9.7 % (2-12); NEUTROPHILS # (AUTO) 7.5 X10'3 (1.8-7.7); NEUTROPHILS % (AUTO) 82.6 % (42-75); PLATELET COUNT 228 X10'3 (140-440); RED BLOOD COUNT 3.02 X10'6 (4.70-6.10); RED CELL DISTRIBUTION WIDTH 17.9 % (11.5-14.5); WHITE BLOOD COUNT 9.1 X10'3 (4.5-11.0)
[2018-03-22 06:11] LABS: ANION GAP 4 (8-16); CHLORIDE 104 MMOL/L (99-107); POTASSIUM 5.2 MMOL/L (3.5-5.1); SODIUM 139 MMOL/L (135-145)
[2018-03-22] MEDS ORDERED: ceFAZolin 1GM/D5W- ADD-VANTAGE 50 ML IV ONE (08:00)
[2018-03-22] MEDS ORDERED: aspirin 325mg tablet PO SCH (08:30)
[2018-03-22 09:25] VITALS: BP 115/51
[2018-03-22] MEDS: carVEDilol 3.125mg tablet PO SCH ×2 (09:29→20:44)
[2018-03-22] MEDS: amiodarone 200mg tablet PO SCH (09:29)
[2018-03-22] MEDS: duloxetine 30mg CAPSULE.DR PO SCH (09:29)
[2018-03-22] MEDS: furosemide 20MG tablet PO SCH (09:30)
[2018-03-22] MEDS: pantoprazole 40mg Tablet.DR PO SCH (09:30)
[2018-03-22] MEDS: ascorbic acid 500mg tablet PO SCH ×2 (09:30→20:45)
[2018-03-22] MEDS: multivitamins, therapeutics tablet PO SCH (09:30)
[2018-03-22] MEDS: gabapentin 300mg capsule PO SCH ×3 (09:30→20:45)
[2018-03-22] MEDS: sacubitril/valsartan 24mg-26mg tablet PO SCH ×2 (09:41→20:45)
[2018-03-22] MEDS ORDERED: polyvinyl alcohol ophthalmic drops 15ml bottle EACHEYE PRN (09:45)
[2018-03-22] MEDS: sodium chloride 0.45% 1,000 ML IV SCH ×3 (10:09→19:24)
[2018-03-22] MEDS: oxyCODONE/APAP 5-325mg tablet PO PRN (10:09)
[2018-03-22 12:03] LABS: INR 1.2 INR; PROTHROMBIN TIME 12.5 SECONDS (9.0-12.0)
[2018-03-22 15:10] VITALS: BP 103/41
[2018-03-22] MEDS: tamsulosin 0.4mg capsule PO SCH (17:23)
[2018-03-22 18:00] VITALS: BP 107/44
[2018-03-22] MEDS: sennosides 8.6mg tablet PO SCH (20:44)
[2018-03-22] MEDS: lactobacillus rhamnosus 10,000 MMU CELLS/CAPSULE PO SCH (20:45)
[2018-03-22] MEDS ORDERED: warfarin 1mg tablet PO ONE (21:00)
[2018-03-22 22:00] VITALS: BP 115/43
[2018-03-23] VITALS (14 sets, daily range): BP systolic 104–128; BP diastolic 39–78
[2018-03-23 05:40] LABS: BASOPHILS % (AUTO) 0.3 % (0-1); EOSINOPHILS # (AUTO) 0.3 X10'3 (0-0.9); EOSINOPHILS % (AUTO) 2.3 % (0-6); HEMATOCRIT 25.8 % (42.0-52.0); HEMOGLOBIN 8.4 g/dl (14.0-17.9); LYMPHOCYTES # (AUTO) 0.3 X10'3 (1.1-4.8); LYMPHOCYTES % (AUTO) 2.8 % (21-51); MEAN CORPUSCULAR HEMOGLOBIN 26.9 PG (27.0-31.0); MEAN CORPUSCULAR HGB CONC 32.7 % (33.0-36.5); MEAN CORPUSCULAR VOLUME 82.4 FL (78-98); MEAN PLATELET VOLUME 8.3 FL (7.4-10.4); MONOCYTES # (AUTO) 0.9 X10'3 (0-0.9); MONOCYTES % (AUTO) 8.3 % (2-12); NEUTROPHILS # (AUTO) 9.7 X10'3 (1.8-7.7); NEUTROPHILS % (AUTO) 86.3 % (42-75); PLATELET COUNT 258 X10'3 (140-440); RED BLOOD COUNT 3.13 X10'6 (4.70-6.10); RED CELL DISTRIBUTION WIDTH 17.9 % (11.5-14.5); WHITE BLOOD COUNT 11.3 X10'3 (4.5-11.0)
[2018-03-23 05:45] LABS: INR 1.2 INR; PROTHROMBIN TIME 12.2 SECONDS (9.0-12.0)
[2018-03-23] MEDS: oxyCODONE/APAP 5-325mg tablet PO PRN ×3 (07:32→20:20)
[2018-03-23] MEDS: amiodarone 200mg tablet PO SCH (07:32)
[2018-03-23] MEDS: sacubitril/valsartan 24mg-26mg tablet PO SCH ×2 (07:33→20:20)
[2018-03-23] MEDS: lactobacillus rhamnosus 10,000 MMU CELLS/CAPSULE PO SCH ×2 (07:33→20:20)
[2018-03-23] MEDS: pantoprazole 40mg Tablet.DR PO SCH (07:33)
[2018-03-23] MEDS: ascorbic acid 500mg tablet PO SCH ×2 (07:33→20:20)
[2018-03-23] MEDS: carVEDilol 3.125mg tablet PO SCH ×2 (07:33→20:21)
[2018-03-23] MEDS: duloxetine 30mg CAPSULE.DR PO SCH (07:34)
[2018-03-23] MEDS: gabapentin 300mg capsule PO SCH ×3 (07:34→20:20)
[2018-03-23] MEDS: multivitamins, therapeutics tablet PO SCH (07:34)
[2018-03-23] MEDS: sodium chloride 0.45% 1,000 ML IV SCH ×3 (07:38→22:22)
[2018-03-23] MEDS: furosemide 20MG tablet PO SCH (09:13)
[2018-03-23 09:17] LABS: ANION GAP 6 (8-16); BLOOD UREA NITROGEN 16 MG/DL (7-18); BUN/CREATININE RATIO 14.3 (5.4-32.0); CALCIUM 8.1 MG/DL (8.5-10.1); CHLORIDE 103 MMOL/L (99-107); CREATININE 1.12 MG/DL (0.60-1.10); GLUCOSE 200 MG/DL (70-104); POTASSIUM 4.9 MMOL/L (3.5-5.1); SODIUM 136 MMOL/L (135-145); TOTAL CARBON DIOXIDE 26.9 MMOL/L (24-32); eGFR 64 ML/MIN
[2018-03-23] MEDS: vancomycin/NS 1 GM ADD-VANTAGE 250 ML IV SCH ×2 (10:30→22:21)
[2018-03-23] MEDS: Protein Smoothie (high protein) 240ml (8oz) cup PO SCH ×4 (11:56→18:00)
[2018-03-23] MEDS: tamsulosin 0.4mg capsule PO SCH (17:08)
[2018-03-23] MEDS: sennosides 8.6mg tablet PO SCH (20:20)
[2018-03-24 05:00] VITALS: BP 118/52
[2018-03-24 05:47] LABS: INR 1.1 INR; PROTHROMBIN TIME 11.7 SECONDS (9.0-12.0)
[2018-03-24 05:50] LABS: BASOPHILS % (AUTO) 0.2 % (0-1); EOSINOPHILS # (AUTO) 0.2 X10'3 (0-0.9); EOSINOPHILS % (AUTO) 2.2 % (0-6); HEMATOCRIT 25.9 % (42.0-52.0); HEMOGLOBIN 8.6 g/dl (14.0-17.9); LYMPHOCYTES # (AUTO) 0.4 X10'3 (1.1-4.8); LYMPHOCYTES % (AUTO) 4.1 % (21-51); MEAN CORPUSCULAR HEMOGLOBIN 28.5 PG (27.0-31.0); MEAN CORPUSCULAR HGB CONC 33.3 % (33.0-36.5); MEAN CORPUSCULAR VOLUME 85.4 FL (78-98); MEAN PLATELET VOLUME 8.4 FL (7.4-10.4); MONOCYTES # (AUTO) 0.6 X10'3 (0-0.9); MONOCYTES % (AUTO) 7.4 % (2-12); NEUTROPHILS # (AUTO) 7.5 X10'3 (1.8-7.7); NEUTROPHILS % (AUTO) 86.1 % (42-75); PLATELET COUNT 207 X10'3 (140-440); RED BLOOD COUNT 3.03 X10'6 (4.70-6.10); RED CELL DISTRIBUTION WIDTH 18.2 % (11.5-14.5); WHITE BLOOD COUNT 8.7 X10'3 (4.5-11.0)
[2018-03-24] MEDS: oxyCODONE/APAP 5-325mg tablet PO PRN ×2 (05:50→09:46)
[2018-03-24 05:51] LABS: ALBUMIN 1.8 G/DL (3.4-5.0); ANION GAP 4 (8-16); BLOOD UREA NITROGEN 17 MG/DL (7-18); BUN/CREATININE RATIO 18.1 (5.4-32.0); CHLORIDE 106 MMOL/L (99-107); CREATININE 0.94 MG/DL (0.60-1.10); GLUCOSE 135 MG/DL (70-104); POTASSIUM 4.4 MMOL/L (3.5-5.1); SODIUM 139 MMOL/L (135-145); TOTAL CARBON DIOXIDE 28.8 MMOL/L (24-32); eGFR 79 ML/MIN
[2018-03-24] MEDS: furosemide 20MG tablet PO SCH (08:00)
[2018-03-24] MEDS: sacubitril/valsartan 24mg-26mg tablet PO SCH (08:00)
[2018-03-24] MEDS: carVEDilol 3.125mg tablet PO SCH (08:00)
[2018-03-24] MEDS: ascorbic acid 500mg tablet PO SCH (08:11)
[2018-03-24] MEDS: multivitamins, therapeutics tablet PO SCH (08:11)
[2018-03-24] MEDS: lactobacillus rhamnosus 10,000 MMU CELLS/CAPSULE PO SCH (08:11)
[2018-03-24] MEDS: gabapentin 300mg capsule PO SCH ×2 (08:11→13:00)
[2018-03-24] MEDS: amiodarone 200mg tablet PO SCH (08:11)
[2018-03-24] MEDS: Protein Smoothie (high protein) 240ml (8oz) cup PO SCH ×2 (08:11→13:13)
[2018-03-24] MEDS: duloxetine 30mg CAPSULE.DR PO SCH (08:12)
[2018-03-24] MEDS: pantoprazole 40mg Tablet.DR PO SCH (08:12)
[2018-03-24] MEDS: sodium chloride 0.45% 1,000 ML IV SCH (09:45)
[2018-03-24 10:33] VITALS: BP 107/44
[2018-03-24] MEDS: vancomycin/NS 1 GM ADD-VANTAGE 250 ML IV SCH (10:46)
[2018-03-24] MEDS ORDERED: VANCOMYCIN LEVEL IV ONE (21:30)
== END 2018-03-24 13:40 | DRG 469 ==
LOC: EDSTATUS 09:50 → PAS IN 03-21 10:50 → EDSTATUS 03-21 13:45 → ORTHO 4S 03-21 16:40
PROVIDERS: ADMIT Orthopaedic Surgery; ATTEND Orthopaedic Surgery
PROC: 0SPB04Z Removal of Internal Fixation Device from Left Hip Joint, Open Approach (ICD-10-PCS; 2018-03-21)
PROC: 30233N1 Transfusion of Nonautologous Red Blood Cells into Peripheral Vein, Percutaneous Approach (ICD-10-PCS; 2018-03-21)
PROC: 0SRB06Z Replacement of Left Hip Joint with Oxidized Zirconium on Polyethylene Synthetic Substitute, Open Approach (ICD-10-PCS; principal; 2018-03-21 13:00)
PROC: 30233N1 Transfusion of Nonautologous Red Blood Cells into Peripheral Vein, Percutaneous Approach (ICD-10-PCS; 2018-03-23)
DX: T84.125A Displacement of internal fixation device of left femur, initial encounter (principal); E43 Unspecified severe protein-calorie malnutrition; I11.0 Hypertensive heart disease with heart failure; E11.621 Type 2 diabetes mellitus with foot ulcer; I50.9 Heart failure, unspecified; Z68.1 Body mass index [BMI] 19.9 or less, adult; M86.671 Other chronic osteomyelitis, right ankle and foot; S72.142K Displaced intertrochanteric fracture of left femur, subsequent encounter for closed fracture with nonunion; L97.519 Non-pressure chronic ulcer of other part of right foot with unspecified severity; J44.9 Chronic obstructive pulmonary disease, unspecified; X58.XXXA Exposure to other specified factors, initial encounter; L97.529 Non-pressure chronic ulcer of other part of left foot with unspecified severity; D50.0 Iron deficiency anemia secondary to blood loss (chronic); I25.10 Atherosclerotic heart disease of native coronary artery without angina pectoris; K21.9 Gastro-esophageal reflux disease without esophagitis; F32.9 Major depressive disorder, single episode, unspecified; Y83.8 Other surgical procedures as the cause of abnormal reaction of the patient, or of later complication, without mention of misadventure at the time of the procedure; Z79.82 Long term (current) use of aspirin; Z79.899 Other long term (current) drug therapy; Y93.89 Activity, other specified; Y92.89 Other specified places as the place of occurrence of the external cause; Y99.8 Other external cause status
CPT/HCPCS: 36415; 71045; 72170; 73501; 80048; 80051; 80053; 80076; 82948; 83036; 84439; 84443; 85025; 85610; 85730; 86885; 86900; 86901; 86920; 87070; 87075; 93005; 97110; 97116; 97162; 97530; A4333; A6213; A6222; A6402; J0171; J0690; J0735; J1100; J1885; J2250; J2274; J2704; J2765; J2795; J3010; J3370; J3490; J7030; J7060; J7120; P9016; P9045

== ENCOUNTER 2019-04-05 15:50 | Outpatient (CLI) | payer MEDICARE, BC ==
[~2019-04-05] VITALS: Ht 180.3 cm; Wt 63.5 kg
[~2019-04-05 15:50] MED LIST changes: +ACET-2119 PO; +AMIO200T40 PO; -AMIO200T57 PO; +ASCO500C15 PO; +BISA10SU60 RC; +CARV3.12 PO; +COLL30OI TP; +DEXT15DR7 EACHEYE; +FLO0.4C PO; +LIDOCAINE GEL 2% TOP; +MAGN400O6 PO; +MULT-38 PO; +NA P133E4 RC; +OMEP20TA5 PO; +ONDA4TAB6 PO; +VANC1PLA9 IV
[2019-04-05 16:25] LABS: TOTAL HEMOGLOBIN 13.7 G/dl (14.0-18.0)
[2019-04-05] MEDS ORDERED: albuterol 2.5 MG/3 ML nebule NEB ONE (16:45)
== END 2019-04-05 23:59 | disposition home or self-care (01) ==
LOC: RT 15:50
PROVIDERS: ATTEND Internal Medicine Cardiovascular Disease
DX: J90 Pleural effusion, not elsewhere classified (principal); M41.84 Other forms of scoliosis, thoracic region; I48.0 Paroxysmal atrial fibrillation; R94.2 Abnormal results of pulmonary function studies; Z79.899 Other long term (current) drug therapy
CPT/HCPCS: 71046; 85018; 94060; 94727; 94729; 94760